=== PATIENT | female | born 1965 | race Asian ===

== ENCOUNTER 2017-08-12 09:16 | Day surgery (SDC) | payer OTHER ==
[2017-08-11 10:40] VITALS: BMI 21.2
[2017-08-12] MEDS ORDERED: LIDOCAINE 1%/EPI 1:100000 (20 ML MULTI DOSE VIAL) ONE (13:12)
[2017-08-12] MEDS ORDERED: ceFAZolin SODIUM 1 GM VIAL ONE ×2 (13:12→13:57)
[2017-08-12] MEDS ORDERED: GENTAMICIN SO4 80 MG/2 ML VIAL ONE (13:12)
[2017-08-12] MEDS ORDERED: MIDAZOLAM HCL 2 MG/2 ML SINGLE DOSE VIAL ONE (13:19)
[2017-08-12] MEDS ORDERED: PROPOFOL 20 ML ONE ×4 (13:49→15:12)
[2017-08-12] MEDS ORDERED: ONDANSETRON 4 MG/2 ML VIAL ONE ×2 (13:57→15:21)
[2017-08-12] MEDS ORDERED: DEXAMETHASONE SOD PHOSPHATE 4 MG/1 ML VIAL ONE ×2 (13:57→15:21)
[2017-08-12] MEDS ORDERED: BUPIVACAINE HCL/PF 0.5% (5MG/ML) 10 ML VIAL ONE (14:40)
[2017-08-12] MEDS ORDERED: ONDANSETRON 4 MG/2 ML VIAL IVPUSH PRN (14:41)
[2017-08-12] MEDS ORDERED: oxyCODONE HCL 5 MG TABLET PO PRN (14:41)
[2017-08-12] MEDS ORDERED: LACTATED RINGERS SOLUTION 1,000 ML IV SCH (14:45)
--- NOTE | 2017-08-12 15:57 | OP ---
Operative Note - Note: Operative Date: 08/12/17 Pre-Operative Diagnosis: Acquired chest wall deformity post cancer Operation: Bilateral reconstruction with other technique,Bilateral subcutaneous tissue transfer,Reconstruction with saline implants bilateral Implants: Reader 240 cc Post-Operative Diagnosis: Same as Pre-op Surgeon: Kadeem Rhodes Animal Scientist: Jimmy Yadav Anesthesia: General Specimens Removed: bilateral nipples Estimated Blood Loss (mls): 25
--- NOTE | 2017-08-12 16:42 | SURG ---
Surgery Transplant Rn Note Transplant Rn: Jimmy Yadav PA-C Date of Service: 08/12/17 Diagnosis: Acquired chest wall deformity post cancer Procedure: Bilateral reconstruction with other technique, Bilateral subcutaneous tissue transfer, Reconstruction with saline implants bilateral I was present for the entirety of the operative procedure. For further detail, please refer to operative report. Visit type - Case Type Case Type: Scheduled Admission
[2017-08-12 17:09] VITALS: TEMP 97.8
[2017-08-12] MEDS ORDERED: oxyCODONE HCL 5 MG TABLET ONE (17:13)
[2017-08-12 18:03] VITALS: BP 98/62
[2017-08-12 18:10] VITALS: PULSE 71
--- NOTE | 2017-08-17 00:07 | OP ---
DATE OF OPERATION: 08/12/2017 SURGEON: Luigi Rhodes M.D. [employer]ITCH [employer]ER SURGEON: Remi Hernandes PREOPERATIVE DIAGNOSIS: Bilateral acquired chest wall deformity status post bilateral breast deformity after cancer surgery. OPERATIVE PROCEDURE: 1. Right breast reconstruction with other technique. 2. Left breast reconstruction with other technique. 3. Reconstruction of left breast with implant. 4. Reconstruction right breast with implant. POSTOPERATIVE DIAGNOSIS: Bilateral acquired chest wall deformity status post bilateral breast deformity after cancer surgery. OPERATIVE INDICATION: Patient is a young woman who underwent deforming chest wall excision of a breast cancer from the left side and now presents with gross asymmetry of the chest wall and previous history of breast carcinoma. There is a significant asymmetry from 1 side to the other and required the above procedure. The risks and benefits, surgical versus nonsurgical alternatives as well as material complications were described to the patient preoperatively, and she agreed to planned procedure. OPERATIVE PROCEDURE IN DETAIL: The patient was taken to the operating room and after induction of general anesthesia in supine position, both arms were extended and padded, Venodyne boots were placed. At this point, the asymmetry on the reconstructed chest wall was evident. The incisions were planned approximately 7 cm from the inframammary fold, and were then injected with 1% local lidocaine anesthesia, 1:100,000 epinephrine into these areas marking approximately 4-cm incisions. At this point, procedure was begun on the left side, and inframammary incision down through skin to subcutaneous tissue, then down through the subcutaneous tissue to the underlying pectoralis major muscle was accomplished. The area of the previous cancer surgery was encountered, and dissection was then begun below the pectoralis major muscle, creating a space and pocket for reconstructed implants. Dissection was carried superiorly to the 2nd rib, medially to the sternal fibers , and the origin of the pectoralis major muscle was lifted into its new position. At this point, copious irrigation and hemostasis was obtained throughout the pocket, and an implant was chosen. An Potter implant, which is a structured saline implant, was chosen for this patient. This was filled with sterile saline on front and back to a total volume of 270 mL. The serial number was [id number]. This showed good shape and contour except for the defect, where the mastectomy of breast tissue had been done so an incision was then made on the right and left side to the abdomen harvesting reconstructive tissue in the usual fashion for reconstruction. Incisions were made down through the skin deep into the subcutaneous tissue and down to underlying rectus muscle and oblique fascia. Tissue was then harvested for reconstructive purposes, transferred to the back table, washed, cleansed, and prepared for reconstruction. An incision was then made on the right inframammary fold symmetrically to the opposite side, and a subpectoral pocket was fashioned for the right breast to match the reconstructed left breast. The same Potter structured breast saline implant was chosen for the left side. This was also filled to 270 mL volume. The serial number on this device was [id number]. This showed better symmetry to the reconstructed breast, but then the tissue which had been harvested was transferred to both breasts. This was transferred to the left breast and the superior, medial and lateral portions of the left breast, and the medial central and inferior portions of the right breast. The patient was placed into sitting position, both wounds appeared to be symmetric, and both breasts appeared to be of good shape and quality for reconstruction. The abdominal closure was carried out with interrupted and running sutures, and the breast incisions were closed in 3 layers using 2-0 PDS suture on the deepest tissue and fascia, 3-0 in the deep dermal fashion, and 4-0 Biosyn in the subcuticular fashion. Mastisol, Steri- Strips, and a compressive dressing were placed. She was awakened, extubated, and transferred to recovery room in a Surgi-Bra, and tolerated procedure well. LUIGI RHODES M.D. [id number] MTDD
--- NOTE | 2017-08-17 10:09 | PATH ---
Surgical Pathology Report Patient Name: NEHEMIAS RAM [facility]. Rec. #: [id number] /Age/Gender: 1965 (Age: 51) / F Account: [id number] Location: [facility] AMBULATORY Taken: 08/12/2017 Received: 08/12/2017 Reported: 08/17/2017 Physicians: Kadeem Rhodes Specimen(s) Received A: LEFT NIPPLE B: RIGHT NIPPLE Clinical History History of breast cancer Final Diagnosis A. LEFT BREAST, NIPPLE, RESECTION: NIPPLE, NEGATIVE FOR CARCINOMA. B. RIGHT BREAST, NIPPLE, RESECTION: NIPPLE, NEGATIVE FOR CARCINOMA Electronically Signed Kamron Weber M.D. Gross Description A. Received in formalin labeled "left nipple," is a 1.9 x 1.2 x 1.0 cm roberts-brown, unoriented nipple. The base is inked blue and the specimen is serially sectioned. The specimen is entirely submitted in 3 cassettes. B. Received in formalin labeled "right nipple," is a 1.7 x 1.2 x 1.0 cm roberts-brown, unoriented nipple. The base is inked blue and the specimen is serially sectioned. The specimen is entirely submitted in 3 cassettes. 08/15/201708/15/2017
== END 2017-08-12 18:06 | disposition home or self-care (01) ==
LOC: FASU 09:16
PROVIDERS: ATTEND Plastic Surgery
PROC: 0HRV07Z Replacement of Bilateral Breast with Autologous Tissue Substitute, Open Approach (ICD-10-PCS; principal; 2017-08-12 14:08)
PROC: 0HRV0JZ Replacement of Bilateral Breast with Synthetic Substitute, Open Approach (ICD-10-PCS; 2017-08-12 14:08)
DX: M95.4 Acquired deformity of chest and rib (principal); N65.0 Deformity of reconstructed breast; Z85.3 Personal history of malignant neoplasm of breast
CPT/HCPCS: 84703; 88304-TC; 94760